=== PATIENT | male | born 1945 | race American Indian/Alaskan Native ===

== ENCOUNTER 2019-02-03 11:53 | Inpatient (IN) | payer MEDICARE ==
[2019-02-03] MEDS ORDERED: CARDIZEM ONE (12:26)
[2019-02-03] MEDS ORDERED: CARDIZEM IV ONE (12:27)
--- NOTE | 2019-02-03 12:30 | Emergency Department Report ---
ED General Adult HPI - General Chief complaint: Chest Pain Stated complaint: CHEST PRESSURE Time Seen by Provider: 02/03/19 12:15 Source: patient, EMS Mode of arrival: Stretcher Limitations: No Limitations - History of Present Illness Initial comments: Patient is a 73-year-old male that presents emergency room with complaints of chest pressure and shortness of breath, And palpitations. Patient states he was at his primary care's office they found him to have a high heart rate patient sent here for further evaluation treatment per EMS. Patient states his chest pressure has resolved but is still having palpitations shortness of breath. Patient states shortness of breath better with rest worse with exertion. -: Sudden Quality: aching Consistency: constant, now resolved Improves with: rest Worsens with: movement Associated Symptoms: chest pain, malaise, shortness of breath. denies: cough, diaphoresis, fever/chills, headaches, loss of appetite, nausea/vomiting, rash, seizure, syncope, weakness Treatments Prior to Arrival: none - Related Data Home Medications Medication Instructions Recorded Confirmed Last Taken Apixaban [Eliquis] 5 mg PO BID 02/03/19 02/03/19 02/03/19 Atorvastatin [Lipitor Tab] 40 mg PO QPM 02/03/19 02/03/19 02/02/19 Cyanocobalamin (Vitamin B-12) 500 mcg PO QDAY 02/03/19 02/03/19 02/02/19 [Vitamin B-12] Losartan/Hydrochlorothiazide 1 each PO DAILY 02/03/19 02/03/19 02/02/19 [Losartan-Hctz 50-12.5 mg Tab] Sotalol [Betapace] 80 mg PO BID 02/03/19 02/03/19 02/03/19 Tamsulosin [Flomax] 0.4 mg PO QPM 02/03/19 02/03/19 02/02/19 Allergies Allergy/AdvReac Type Severity Reaction Status Date / Time No Known Allergies Allergy Verified 02/03/19 12:09 ED Review of Systems ROS: Stated complaint: CHEST PRESSURE Other details as noted in HPI Constitutional: denies: chills, fever Eyes: denies: eye pain, eye discharge, vision change ENT: denies: ear pain, throat pain Respiratory: shortness of breath, SOB with exertion, SOB at rest. denies: cough, wheezing Cardiovascular: chest pain, palpitations Endocrine: no symptoms reported Gastrointestinal: denies: abdominal pain, nausea, diarrhea Genitourinary: denies: urgency, dysuria Musculoskeletal: denies: back pain, joint swelling, arthralgia Skin: denies: rash, lesions Neurological: denies: headache, weakness, paresthesias Psychiatric: denies: anxiety, depression Hematological/Lymphatic: denies: easy bleeding, easy bruising ED Past Medical Hx - Past Medical History Previous Medical History?: Yes Hx Hypertension: Yes Hx CVA: Yes Hx Heart Attack/AMI: No Hx Congestive Heart Failure: No Hx Liver Disease: No Hx Renal Disease: No Additional medical history: afib, htn, high cholestrol, stroke in november 2018 - Surgical History Past Surgical History?: No - Family History Family history: no significant - Social History Smoking Status: Never Smoker Substance Use Type: None - Medications Home Medications: Home Medications Medication Instructions Recorded Confirmed Last Taken Type Apixaban [Eliquis] 5 mg PO BID 02/03/19 02/03/19 02/03/19 History Atorvastatin [Lipitor Tab] 40 mg PO QPM 02/03/19 02/03/19 02/02/19 History Cyanocobalamin (Vitamin B-12) 500 mcg PO QDAY 02/03/19 02/03/19 02/02/19 History [Vitamin B-12] Losartan/Hydrochlorothiazide 1 each PO DAILY 02/03/19 02/03/19 02/02/19 History [Losartan-Hctz 50-12.5 mg Tab] Sotalol [Betapace] 80 mg PO BID 02/03/19 02/03/19 02/03/19 History Tamsulosin [Flomax] 0.4 mg PO QPM 02/03/19 02/03/19 02/02/19 History ED Physical Exam - General Limitations: No Limitations General appearance: alert, in no apparent distress - Head Head exam: Present: atraumatic, normocephalic - Eye Eye exam: Present: normal appearance - ENT ENT exam: Present: mucous membranes moist - Neck Neck exam: Present: normal inspection - Respiratory Respiratory exam: Present: normal lung sounds bilaterally. Absent: respiratory distress, wheezes, rales - Cardiovascular Cardiovascular Exam: Present: regular rate, normal rhythm, tachycardia. Absent: systolic murmur, diastolic murmur, rubs, gallop - GI/Abdominal GI/Abdominal exam: Present: soft, normal bowel sounds - Rectal Rectal exam: Present: deferred - Extremities Exam Extremities exam: Present: normal inspection - Back Exam Back exam: Present: normal inspection - Neurological Exam Neurological exam: Present: alert, oriented X3 - Psychiatric Psychiatric exam: Present: normal affect, normal mood - Skin Skin exam: Present: warm, dry, intact, normal color. Absent: rash ED Course Vital Signs 02/03/19 02/03/19 02/03/19 12:15 12:27 12:31 Pulse Rate 118 H 137 H 69 Respiratory 22 19 Rate Blood Pressure 124/85 124/85 O2 Sat by Pulse 100 Oximetry 02/03/19 02/03/19 02/03/19 12:33 12:35 12:37 Pulse Rate 70 69 69 Respiratory 20 17 12 Rate Blood Pressure 101/62 101/62 98/65 O2 Sat by Pulse 99 100 96 Oximetry 02/03/19 02/03/19 02/03/19 12:39 12:41 12:43 Pulse Rate 69 74 74 Respiratory 22 18 18 Rate Blood Pressure 98/65 96/59 96/59 O2 Sat by Pulse 98 100 100 Oximetry 02/03/19 02/03/19 02/03/19 12:45 12:47 12:49 Pulse Rate 69 71 72 Respiratory 22 22 21 Rate Blood Pressure 96/59 106/67 106/67 O2 Sat by Pulse 100 98 92 Oximetry 02/03/19 02/03/19 02/03/19 12:51 12:53 12:55 Pulse Rate 79 90 76 Respiratory 15 16 21 Rate Blood Pressure 109/67 109/67 109/67 O2 Sat by Pulse 86 81 L 86 Oximetry 02/03/19 02/03/19 02/03/19 12:56 12:57 12:59 Pulse Rate 80 72 75 Respiratory 21 15 15 Rate Blood Pressure 114/73 114/73 114/73 O2 Sat by Pulse 93 81 L 78 L Oximetry 02/03/19 02/03/19 02/03/19 13:00 13:01 13:03 Pulse Rate 76 80 76 Respiratory 13 21 15 Rate Blood Pressure 120/77 120/77 120/77 O2 Sat by Pulse 94 93 89 Oximetry 02/03/19 02/03/19 02/03/19 13:05 13:06 13:07 Pulse Rate 81 72 81 Respiratory 22 21 18 Rate Blood Pressure 120/77 128/78 128/78 O2 Sat by Pulse 93 85 98 Oximetry 02/03/19 02/03/19 02/03/19 13:09 13:11 13:13 Pulse Rate 72 80 91 H Respiratory 21 12 20 Rate Blood Pressure 128/78 121/67 121/67 O2 Sat by Pulse 100 100 100 Oximetry 02/03/19 02/03/19 02/03/19 13:15 13:16 13:17 Pulse Rate 102 H 90 91 H Respiratory 21 24 24 Rate Blood Pressure 121/67 118/62 118/62 O2 Sat by Pulse 88 99 Oximetry 02/03/19 02/03/19 02/03/19 13:18 13:19 13:21 Pulse Rate 85 85 103 H Respiratory 20 17 13 Rate Blood Pressure 118/62 114/64 O2 Sat by Pulse 84 96 99 Oximetry 02/03/19 02/03/19 02/03/19 13:23 13:25 13:27 Pulse Rate 97 H 81 85 Respiratory 15 18 22 Rate Blood Pressure 114/64 114/64 114/69 O2 Sat by Pulse 100 100 100 Oximetry 02/03/19 02/03/19 02/03/19 13:29 13:31 13:32 Pulse Rate 86 90 91 H Respiratory 21 19 22 Rate Blood Pressure 114/69 114/69 88/62 O2 Sat by Pulse 100 94 99 Oximetry 02/03/19 02/03/19 02/03/19 13:33 13:35 13:37 Pulse Rate 86 81 90 Respiratory 23 17 21 Rate Blood Pressure 88/62 88/62 112/64 O2 Sat by Pulse 100 100 100 Oximetry 02/03/19 02/03/19 02/03/19 13:39 13:40 13:41 Pulse Rate 85 86 85 Respiratory 21 21 23 Rate Blood Pressure 112/64 108/67 108/67 O2 Sat by Pulse 99 93 98 Oximetry 02/03/19 02/03/19 02/03/19 13:43 13:45 13:46 Pulse Rate 77 75 96 H Respiratory 18 21 16 Rate Blood Pressure 108/67 118/62 116/77 O2 Sat by Pulse 99 96 99 Oximetry 02/03/19 02/03/19 02/03/19 13:47 13:49 13:51 Pulse Rate 111 H 109 H 96 H Respiratory 17 26 H 22 Rate Blood Pressure 116/77 116/77 111/68 O2 Sat by Pulse 97 100 98 Oximetry 02/03/19 02/03/19 02/03/19 13:53 13:55 13:56 Pulse Rate 103 H 102 H 118 H Respiratory 19 25 H 25 H Rate Blood Pressure 111/68 111/68 112/74 O2 Sat by Pulse 100 100 100 Oximetry 02/03/19 02/03/19 02/03/19 13:57 13:59 14:01 Pulse Rate 103 H 109 H 129 H Respiratory 20 12 22 Rate Blood Pressure 112/74 112/74 112/74 O2 Sat by Pulse 100 97 98 Oximetry 02/03/19 02/03/19 02/03/19 14:03 14:05 14:07 Pulse Rate 132 H 133 H 119 H Respiratory 20 15 22 Rate Blood Pressure 119/96 119/96 135/89 O2 Sat by Pulse 99 100 Oximetry 02/03/19 02/03/19 02/03/19 14:09 14:11 14:13 Pulse Rate 102 H 110 H 102 H Respiratory 20 22 21 Rate Blood Pressure 135/89 115/71 115/71 O2 Sat by Pulse 100 100 100 Oximetry 02/03/19 02/03/19 02/03/19 14:15 14:17 14:18 Pulse Rate 111 H 110 H 111 H Respiratory 15 22 23 Rate Blood Pressure 115/71 115/71 108/75 O2 Sat by Pulse 100 100 97 Oximetry 02/03/19 02/03/19 02/03/19 14:19 14:21 14:23 Pulse Rate 97 H 133 H 131 H Respiratory 25 H 31 H 24 Rate Blood Pressure 108/75 131/87 131/87 O2 Sat by Pulse 99 100 100 Oximetry 02/03/19 02/03/19 02/03/19 14:25 14:26 14:27 Pulse Rate 104 H 110 H 111 H Respiratory 25 H 21 25 H Rate Blood Pressure 131/87 128/79 128/79 O2 Sat by Pulse 100 100 100 Oximetry 02/03/19 02/03/19 02/03/19 14:29 14:31 14:33 Pulse Rate 132 H 132 H 133 H Respiratory 19 22 18 Rate Blood Pressure 128/79 128/79 128/79 O2 Sat by Pulse 100 100 100 Oximetry 02/03/19 02/03/19 02/03/19 14:35 14:36 14:37 Pulse Rate 132 H 133 H 132 H Respiratory 20 22 20 Rate Blood Pressure 128/79 131/86 131/86 O2 Sat by Pulse 99 100 99 Oximetry - Reevaluation(s) Reevaluation #1: Patient given Cardizem push and heart rate improved. Repeat EKG will be done. 02/03/19 12:29 Patient's heart rate improved. Patient's blood pressure is low. Patient will be given normal saline bolus. 02/03/19 12:37 After 1 L of fluid the patient blood pressure is much better. We will continue to hold the Cardizem drip and use it when necessary. Discussed all results with patient. Patient will be admitted to the hospitalist service. Patient agrees to plan of care. 02/03/19 13:33 - Consultations Consultation #1: Hospitalist consulted for admission. Hospitalist to admit patient. Hospitalist to assume care patient. 02/03/19 13:41 ED Medical Decision Making - Lab Data Result diagrams: 02/03/19 12:29 02/03/19 12:29 - EKG Data -: EKG Interpreted by Me EKG shows normal: axis, intervals, QRS complexes, ST-T waves Rate: tachycardia - EKG Data Interpretation: LVH, other (atrial flutter with RVR) - Radiology Data Radiology results: image reviewed interpreted by me: No acute findings on chest x-ray - Medical Decision Making Patient is a 73-year-old male that presents emergency room with complaints of chest pain/pressure, shortness of breath and palpitations. Patient found to be in a flutter RVR. Patient given Cardizem and rate immediately decreased. Deidre ent has a Cardizem drip ordered but due to hypotension was held. Patient given fluids and his blood pressure improved. Patient's labs unremarkable except for renal insufficiency. Patient's chest x-ray negative. Patient admitted to the hospital service - Differential Diagnosis cp. sob. palpitations. Tachycardic. ACS. Atrial flutter Critical Care Time: Yes Critical care attestation.: If time is entered above; I have spent that time in minutes in the direct care of this critically ill patient, excluding procedure time. Critical Care Time: 45 minutes ED Disposition Clinical Impression: SOB (shortness of breath), Palpitations, Atrial flutter with rapid ventricular response, Tachycardia, Renal insufficiency Hypotension Qualifiers: Hypotension type: unspecified hypotension type Qualified Code(s): I95.9 - Hypotension, unspecified Chest pain Qualifiers: Chest pain type: unspecified Qualified Code(s): R07.9 - Chest pain, unspecified Disposition: 09 OP ADMIT IP TO THIS HOSP Is pt being admited?: Yes Does the pt Need Aspirin: No Condition: Critical Time of Disposition: 13:36
--- NOTE | 2019-02-03 12:35 | XRay Report ---
AP CHEST: HISTORY: chest pain AP view of the chest demonstrates a normal mediastinal and cardiac contour with clear lungs and normal bony and soft tissue structures. IMPRESSION: No acute cardiopulmonary process is identified.
[2019-02-03] MEDS ORDERED: NACL 0.9% 1000 ML 1,000 ML IV ONE (12:36)
[2019-02-03] MEDS ORDERED: NACL 0.9% 1000 ML 1,000 ML ONE ×2 (12:39→15:56)
[2019-02-03 12:42] LABS: Basophils # (Auto) 0.1 K/mm3 (0.0-0.1); Basophils % (Auto) 1.1 % (0.0-1.8); Eosinophils % (Auto) 0.7 % (0.0-4.3); Hematocrit 38.9 % (35.5-45.6); Lymphocytes # (Auto) 1.7 K/mm3 (1.2-5.4); Lymphocytes % (Auto) 34.2 % (13.4-35.0); Mean Corpuscular HGB Conc 34 % (32-34); Mean Corpuscular Volume 85 fl (84-94); Monocytes # (Auto) 0.7 K/mm3 (0.0-0.8); Monocytes % (Auto) 14.1 % (0.0-7.3); Platelet Count 382 K/mm3 (140-440); Red Blood Count 4.57 M/mm3 (3.65-5.03); Red Cell Distribution Width 16.6 % (13.2-15.2)
[2019-02-03 12:59] LABS: BUN/Creatinine Ratio 8; Blood Urea Nitrogen 12 mg/dL (9-20); Calcium 9.1 mg/dL (8.4-10.2); Hemolysis Index 7
[2019-02-03] MEDS ORDERED: CARDIZEM/D5W 100MG/100ML 100 MG/100 ML BAG IV SCH (13:00)
--- NOTE | 2019-02-03 13:41 | History and Physical Report ---
History of Present Illness Chief complaint: My heart was beating fast History of present illness: 73 YO Male with HTN, CVA, Atrial Fib S/P Cardiac Ablation on therapeutic anticoagulation with ANITRA Rosario presents to ED for evaluation. Pt states that he has experienced chest palpitations, nonproductive cough, and shortness of breath, decreased exercise tolerance, dypsnea on exertion, and dypsnea at rest. Pt was seen by PCP today and was found to have heart rate in the 150's. EMS notified and upon arrival the patient was found to be in distress and transported to [facility]. Pt seen and evaluated in ED and found to have Atrial Fib with RVR as well as symptoms consistent with CHF Decompensation and ARF. Pt denies fever, chills, CP, NVD, Prolonged travel/immobility, individual/family history of DVT/PE, Bleeding or Blood Clotting Disorders, unintentional weight loss,night sweats, or skin rash. Pt admitted to telemetry. Pt treated with cardizem bolus with improvement in heart rate. Pt admitted to telemetry and initiated on IVF resuscitation therapy. Cardiology consulted in ED. Nephrology consulted in ED. Past History Past Medical History: atrial fib, hypertension, hyperlipidemia, stroke Past Surgical History: Other (cardiac ablation) Social history: , lives with family. denies: smoking, alcohol abuse, prescription drug abuse Family history: hypertension Medications and Allergies Allergies Allergy/AdvReac Type Severity Reaction Status Date / Time No Known Allergies Allergy Verified 02/03/19 12:09 Active Meds: Active Medications Diltiazem HCl (Cardizem/D5w 100mg/100ml) 100 mg in 100 mls @ 5 mls/hr IV TITR EDWAR; Protocol Review of Systems Constitutional: no weight loss, no weight gain, no fever, no chills Ears, nose, mouth and throat: no ear pain, no ear discharge, no tinnitis, no decreased hearing, no nose pain Cardiovascular: palpitations, rapid/irregular heart beat, shortness of breath, dyspnea on exertion, decreased exercise tolerance, no chest pain, no syncope Respiratory: cough, cough with sputum, shortness of breath, dyspnea on exertion, no excessive sputum, no hemoptysis Gastrointestinal: no nausea, no vomiting, no diarrhea Genitourinary Male: no hematuria, no flank pain, no discharge, no urinary frequency, no urinary hesitancy Rectal: no pain, no incontinence, no bleeding Musculoskeletal: no neck stiffness, no neck pain, no shooting arm pain, no arm numbness/tingling, no low back pain Integumentary: no rash, no pruritis, no sores, no wounds, no jaundice Neurological: no paralysis, no weakness, no numbness, no tingling Psychiatric: no anxiety, no memory loss, no change in sleep habits, no sleep disturbances, no insomnia, no hypersomnia, no change in appetite Endocrine: no cold intolerance, no heat intolerance, no polyphagia, no excessive thirst, no polyuria, no nocturia Hematologic/Lymphatic: no easy bruising, no easy bleeding Allergic/Immunologic: no urticaria, no allergic rhinitis, no wheezing Exam - Constitutional Vitals: Temp Pulse Resp BP Pulse Ox 102 H 21 121/67 88 02/03/19 13:15 02/03/19 13:15 02/03/19 13:15 02/03/19 13:15 General appearance: Present: mild distress - EENT Eyes: Present: PERRL ENT: hearing intact, clear oral mucosa - Neck Neck: Present: supple, normal ROM - Respiratory Respiratory effort: normal Respiratory: bilateral: CTA - Cardiovascular Rhythm: irregularly irregular Heart Sounds: Present: S1 & S2. Absent: rub, click - Extremities Extremities: pulses symmetrical, No edema Peripheral Pulses: within normal limits - Abdominal General gastrointestinal: Present: soft, non-tender, non-distended, normal bowel sounds Male genitourinary: Present: normal - Integumentary Integumentary: Present: clear, warm, dry - Musculoskeletal Musculoskeletal: gait normal, strength equal bilaterally - Psychiatric Psychiatric: appropriate mood/affect, intact judgment & insight - Neurologic Neurologic: CNII-XII intact, moves all extremities Results - Labs CBC & Chem 7: 02/03/19 12:29 02/03/19 12:29 Labs: Abnormal lab results 02/03/19 02/03/19 Range/Units 12:29 12:29 RDW 16.6 H (13.2-15.2) % Baxter % (Auto) 14.1 H (0.0-7.3) % Sodium 133 L (137-145) mmol/L Creatinine 1.6 H (0.8-1.5) mg/dL Glucose 107 H (75-100) mg/dL Assessment and Plan - Patient Problems (1) Atrial flutter with rapid ventricular response Current Visit: Yes Status: Acute Plan to address problem: Admit to telemetry, Cardizem bolus, and scheduled dosing, continue therapeutic anticoagualtion, cardiology consulted, thyroid panel, magnesium level (2) ARF (acute renal failure) with tubular necrosis Current Visit: Yes Status: Acute Plan to address problem: Nephrology consulted, urine electrolytes, monitor uop q shift, IVF resuscitation therapy (3) Hyponatremia syndrome Current Visit: Yes Status: Acute Plan to address problem: IVF resuscitation, repeat bmp to monitor serum sodium level (4) HTN (hypertension) Current Visit: Yes Status: Acute Qualifiers: Hypertension type: essential hypertension Qualified Code(s): I10 - Essential (primary) hypertension Plan to address problem: monitor bp q shift, continue medical management. (5) HLD (hyperlipidemia) Current Visit: Yes Status: Acute Qualifiers: Hyperlipidemia type: mixed hyperlipidemia Qualified Code(s): E78.2 - Mixed hyperlipidemia Plan to address problem: statin therapy, low cholesterol diet, (6) CHF (congestive heart failure) Current Visit: Yes Status: Suspected Qualifiers: Heart failure type: diastolic Heart failure chronicity: acute Qualified Code(s): I50.31 - Acute diastolic (congestive) heart failure Plan to address problem: Admit to telemetry, echo, bnp, thyroid panel, strict I/O, daily weight, blood pressure control, cardiology consulted in ED, supplemental oxygen, pulse oximetry, chest x ray, (7) DVT prophylaxis Current Visit: Yes Status: Acute Plan to address problem: SCD to BLE while in bed, continue therapeutic anticoagulation.
[2019-02-03] MEDS ORDERED: SODIUM CHLORIDE FLUSH SYRINGE 10 ML IV PRN (14:06)
[2019-02-03] MEDS ORDERED: PROVENTIL IH PRN (14:06)
[2019-02-03] MEDS ORDERED: PERCOCET 5/325 PO PRN (14:06)
[2019-02-03] MEDS ORDERED: ZOFRAN IV PRN (14:06)
[2019-02-03] MEDS ORDERED: TYLENOL PO PRN (14:06)
[2019-02-03] MEDS ORDERED: HYDROMET PO ONE (14:07)
[2019-02-03] MEDS: CARDIZEM PO SCH ×2 (14:35→18:38)
[2019-02-03] MEDS ORDERED: NACL 0.45% 1000 ML 1,000 ML IV SCH (15:00)
[2019-02-03] MEDS ORDERED: NACL 0.9% 500 ML 500 ML IV ONE (15:16)
[2019-02-03] MEDS: BETAPACE PO SCH ×2 (15:28→22:40)
[2019-02-03 15:52] LABS: Free T4 (Free Thyroxine) 1.05 ng/dL (0.76-1.46)
[2019-02-03 16:21] LABS: Creatinine,Urine 154.9 mg/dL (0.1-20.0)
[2019-02-03] MEDS: FLOMAX PO SCH (17:12)
[2019-02-03] MEDS: ELIQUIS PO SCH (22:41)
[2019-02-03] MEDS: SODIUM CHLORIDE FLUSH SYRINGE 10 ML IV SCH (22:41)
[2019-02-04] MEDS: CARDIZEM PO SCH ×4 (00:01→16:59)
[2019-02-04 06:18] LABS: Alanine Aminotransferase 12 units/L (7-56); Albumin 3.4 g/dL (3.9-5); BUN/Creatinine Ratio 11; Blood Urea Nitrogen 13 mg/dL (9-20); Calcium 8.4 mg/dL (8.4-10.2); Hemolysis Index 5
[2019-02-04] MEDS ORDERED: NON-FORMULARY (Losartan/Hydrochlorothiazide [Losartan-Hctz 50-12.5 Mg Tab] 1 EACH) PO SCH (10:00)
[2019-02-04] MEDS ORDERED: HCTZ PO SCH (10:00)
[2019-02-04] MEDS ORDERED: NON-FORMULARY (Cyanocobalamin (Vitamin B-12) [Vitamin B-12] 500 MCG) PO SCH (10:00)
--- NOTE | 2019-02-04 10:44 | Consultation ---
History of Present Illness Consult date: 02/04/19 Consult reason: arrhythmia History of present illness: This is a 73 year old male with a history of atrial fibrillation/flutter managed with sotalol and eliquis. 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 On yesterday, patient went to his pcp office with complaints of shortness of breath, coughs and congestion not relieved by [id number] sinus remedies. Patient was foun d with rapid atrial flutter, sent to the emergency department for management. This was treated with intravenous diltiazem. TSH is normal and a chest x-ray reports no acute process. Today, he remains atrial flutter, rate is better controlled. A cardiac consultation has been requested for management. Past History Past Medical History: atrial fib, hypertension, hyperlipidemia Social history: , lives with family. denies: smoking, alcohol abuse, prescription drug abuse Family history: hypertension Medications and Allergies Allergies Allergy/AdvReac Type Severity Reaction Status Date / Time No Known Allergies Allergy Verified 02/03/19 12:09 Home Medications Medication Instructions Recorded Confirmed Last Taken Type Apixaban [Eliquis] 5 mg PO BID 02/03/19 02/03/19 02/03/19 History Atorvastatin [Lipitor Tab] 40 mg PO QPM 02/03/19 02/03/19 02/02/19 History Cyanocobalamin (Vitamin B-12) 500 mcg PO QDAY 02/03/19 02/03/19 02/02/19 History [Vitamin B-12] Losartan/Hydrochlorothiazide 1 each PO DAILY 02/03/19 02/03/19 02/02/19 History [Losartan-Hctz 50-12.5 mg Tab] Sotalol [Betapace] 80 mg PO BID 02/03/19 02/03/19 02/03/19 History Tamsulosin [Flomax] 0.4 mg PO QPM 02/03/19 02/03/19 02/02/19 History Active Meds: Active Medications Acetaminophen (Tylenol) 650 mg PO Q4H PRN PRN Reason: Pain MILD(1-3)/Fever >100.5/MG Albuterol (Proventil) 2.5 mg IH Q4HRT PRN PRN Reason: Shortness Of Breath Apixaban (Eliquis) 5 mg PO BID [facility]; Protocol Last Admin: 02/03/19 22:41 Dose: 5 mg Documented by: Atorvastatin Calcium (Lipitor) 40 mg PO QPM [facility] Last Admin: 02/03/19 17:12 Dose: 40 mg Documented by: Cyanocobalamin (Vitamin B-12) 500 mcg PO QDAY [facility] Diltiazem HCl (Cardizem) 30 mg PO Q6HR [facility] Last Admin: 02/04/19 05:38 Dose: 30 mg Documented by: Hydrochlorothiazide (Hctz) 12.5 mg PO QDAY [facility] Sodium Chloride (Nacl 0.45% 1000 Ml) 1,000 mls @ 42 mls/hr IV DIRECT [facility] Losartan Potassium (Cozaar) 50 mg PO QDAY [facility] Ondansetron HCl (Zofran) 4 mg IV Q8H PRN PRN Reason: Nausea And Vomiting Oxycodone/Acetaminophen (Percocet 5/325) 1 tab PO Q6H PRN PRN Reason: Pain, Moderate (4-6) Sodium Chloride (Sodium Chloride Flush Syringe 10 Ml) 10 ml IV BID [facility] Last Admin: 02/03/19 22:41 Dose: 10 ml Documented by: Sodium Chloride (Sodium Chloride Flush Syringe 10 Ml) 10 ml IV PRN PRN PRN Reason: LINE FLUSH Sotalol HCl (Betapace) 80 mg PO Q12HR [facility] Last Admin: 02/03/19 22:40 Dose: 80 mg Documented by: Tamsulosin HCl (Flomax) 0.4 mg PO QPM [facility] Last Admin: 02/03/19 17:12 Dose: 0.4 mg Documented by: Physical Examination Vital Signs Pulse Resp 118 H 22 02/03/19 12:15 02/03/19 12:15 General appearance: no acute distress HEENT: Positive: PERRL Cardiac: Positive: irregularly irregular Lungs: Positive: Decreased Breath Sounds Neuro: Positive: Grossly Intact Extremities: Absent: edema Results 02/03/19 12:29 02/04/19 04:35 Cardiac Enzymes 02/04/19 Range/Units 04:35 AST 17 (5-40) units/L CBC 02/03/19 Range/Units 12:29 WBC 4.9 (4.5-11.0) K/mm3 RBC 4.57 (3.65-5.03) M/mm3 Hgb 13.0 (11.8-15.2) gm/dl Hct 38.9 (35.5-45.6) % Plt Count 382 (140-440) K/mm3 Lymph # 1.7 (1.2-5.4) K/mm3 Webb # 0.7 (0.0-0.8) K/mm3 Eos # 0.0 (0.0-0.4) K/mm3 Baso # 0.1 (0.0-0.1) K/mm3 Comprehensive Metabolic Panel 02/03/19 02/04/19 Range/Units 12:29 04:35 Sodium 133 L 136 L (137-145) mmol/L Potassium 4.5 4.4 (3.6-5.0) mmol/L Chloride 98.0 103.4 (98-107) mmol/L Carbon Dioxide 24 22 (22-30) mmol/L BUN 12 13 (9-20) mg/dL Creatinine 1.6 H 1.2 (0.8-1.5) mg/dL Glucose 107 H 98 (75-100) mg/dL Calcium 9.1 8.4 (8.4-10.2) mg/dL AST 17 (5-40) units/L ALT 12 (7-56) units/L Alkaline Phosphatase 77 (35-129) units/L Total Protein 6.3 (6.3-8.2) g/dL Albumin 3.4 L (3.9-5) g/dL Assessment and Plan Atrial flutter on eliquis and sotalol as an outpatient. Diltiazem has been added Hypertension Hyperlipidemia Echocardiogram for LVEF assessment. Obtain prior cardiac records for review.
[2019-02-04] MEDS: VITAMIN B-12 PO SCH (11:03)
[2019-02-04] MEDS: BETAPACE PO SCH ×2 (11:06→22:21)
[2019-02-04] MEDS: ELIQUIS PO SCH ×2 (11:06→22:21)
[2019-02-04] MEDS: COZAAR PO SCH (11:06)
[2019-02-04] MEDS: SODIUM CHLORIDE FLUSH SYRINGE 10 ML IV SCH ×2 (11:07→22:21)
--- NOTE | 2019-02-04 11:28 | Progress Note ---
Assessment and Plan Assessment and plan: Atrial flutter. Continue eliquis and sotalol. Cardiology added diltiazem. Follow-up echocardiogram. Hypertension. Continue antihypertensive medications-- losartan/hydrochlorothiazide. Hyperlipidemia. Continue statin. History Interval history: This is a 73 year old male with a history of atrial fibrillation/flutter managed with sotalol and eliquis. 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 Patient presented to PCPs office and noted to have rapid atrial flutter. Patient was admitted with this diagnosis and started on IV diltiazem. TSH is normal and a chest x-ray reports no acute process. . Hospitalist Physical - Constitutional Vitals: Temp Pulse Resp BP Pulse Ox 98.3 F 58 L 18 105/65 95 02/04/19 08:51 02/04/19 08:51 02/04/19 08:51 02/04/19 11:06 02/04/19 08:51 General appearance: Present: no acute distress - EENT Eyes: Present: PERRL, EOM intact ENT: hearing intact, clear oral mucosa, dentition normal - Neck Neck: Present: supple, normal ROM - Respiratory Respiratory effort: normal Respiratory: bilateral: CTA - Cardiovascular Rhythm: regular Heart Sounds: Present: S1 & S2. Absent: gallop, rub - Extremities Extremities: no ischemia, No edema, Full ROM - Abdominal General gastrointestinal: soft, non-tender, non-distended, normal bowel sounds - Integumentary Integumentary: Present: clear, warm, dry - Neurologic Neurologic: CNII-XII intact, moves all extremities Results - Labs CBC & Chem 7: 02/03/19 12:29 02/04/19 04:35 Labs: Laboratory Last Values WBC 4.9 K/mm3 (4.5-11.0) 02/03/19 12:29 RBC 4.57 M/mm3 (3.65-5.03) 02/03/19 12:29 Hgb 13.0 gm/dl (11.8-15.2) 02/03/19 12:29 Hct 38.9 % (35.5-45.6) 02/03/19 12:29 MCV 85 fl (84-94) 02/03/19 12:29 MCH 29 pg (28-32) 02/03/19 12:29 MCHC 34 % (32-34) 02/03/19 12:29 RDW 16.6 % (13.2-15.2) H 02/03/19 12:29 Plt Count 382 K/mm3 (140-440) 02/03/19 12:29 Lymph % (Auto) 34.2 % (13.4-35.0) 02/03/19 12:29 [place] % (Auto) 14.1 % (0.0-7.3) H 02/03/19 12:29 Eos % (Auto) 0.7 % (0.0-4.3) 02/03/19 12:29 Baso % (Auto) 1.1 % (0.0-1.8) 02/03/19 12: Lymph # 1.7 K/mm3 (1.2-5.4) 02/03/19 12: [place] # 0.7 K/mm3 (0.0-0.8) 02/03/19 12:29 Eos # 0.0 K/mm3 (0.0-0.4) 02/03/19 12:29 Baso # 0.1 K/mm3 (0.0-0.1) 02/03/19 12:29 Seg Neutrophils % 49.9 % (40.0-70.0) 02/03/19 12:29 Seg Neutrophils # 2.5 K/mm3 (1.8-7.7) 02/03/19 12:29 Sodium 136 mmol/L (137-145) L 02/04/19 04:35 Potassium 4.4 mmol/L (3.6-5.0) 02/04/19 04:35 Chloride 103.4 mmol/L (98-107) 02/04/19 04:35 Carbon Dioxide 22 mmol/L (22-30) 02/04/19 04:35 15 mmol/L 02/04/19 04:35 BUN 13 mg/dL (9-20) 02/04/19 04:35 1.2 mg/dL (0.8-1.5) 02/04/19 04:35 Estimated GFR > 60 ml/min 02/04/19 04:35 11 % 02/04/19 04:35 Glucose 98 mg/dL (75-100) 02/04/19 04:35 Calcium 8.4 mg/dL (8.4-10.2) 02/04/19 04:35 Phosphorus 3.00 mg/dL (2.5-4.5) 02/04/19 04:35 Magnesium 1.70 mg/dL (1.7-2.3) 02/04/19 04:35 0.40 mg/dL (0.1-1.2) 02/04/19 04:35 AST 17 units/L (5-40) 02/04/19 04:35 ALT 12 units/L (7-56) 02/04/19 04:35 77 units/L (35-129) 02/04/19 04:35 < 0.010 ng/mL (0.00-0.029) 02/03/19 12:29 NT-Pro-B Natriuret Pep 2231 pg/mL (0-900) H 02/03/19 12:29 6.3 g/dL (6.3-8.2) 02/04/19 04:35 3.4 g/dL (3.9-5) L 02/04/19 04:35 1.2 % 02/04/19 04:35 TSH 1.350 mlU/mL (0.270-4.200) 02/03/19 15:04 Free T4 1.05 ng/dL (0.76-1.46) 02/03/19 15:04 154.9 mg/dL (0.1-20.0) H 02/03/19 16:10 42 mmol/L 02/03/19 16:10 Active Medications - Current Medications Current Medications: Generic Name Dose Route Start Last Admin Trade Name Freq PRN Reason Stop Dose Admin Acetaminophen 650 mg 02/03/19 14:06 Tylenol PO Q4H PRN Pain MILD(1-3)/Fever >100.5/MG Albuterol 2.5 mg 02/03/19 14:06 Proventil IH Q4HRT PRN Shortness Of Breath Apixaban 5 mg 02/03/19 22:00 02/04/19 11:06 Eliquis PO 5 mg BID EDWAR Administration Protocol Atorvastatin Calcium 40 mg 02/03/19 18:00 02/03/19 17:12 Lipitor PO 40 mg QPM EDWAR Administration Cyanocobalamin 500 mcg 02/04/19 10:00 02/04/19 11:03 Vitamin B-12 PO 500 mcg QDAY EDWAR Administration Diltiazem HCl 30 mg 02/03/19 14:05 02/04/19 05:38 Cardizem PO 30 mg Q6HR EDWAR Administration Hydrochlorothiazide 12.5 mg 02/04/19 10:00 02/04/19 11:04 Hctz PO 12.5 mg QDAY EDWAR Administration Sodium Chloride 1,000 mls @ 42 mls/hr 02/03/19 15:00 Nacl 0.45% 1000 Ml IV DIRECT EDWAR Losartan Potassium 50 mg 02/04/19 10:00 02/04/19 11:06 Cozaar PO 50 mg QDAY EDWAR Administration Ondansetron HCl 4 mg 02/03/19 14:06 Zofran IV Q8H PRN Nausea And Vomiting Oxycodone/Acetaminophen 1 tab 02/03/19 14:06 Percocet 5/325 PO Q6H PRN Pain, Moderate (4-6) Sodium Chloride 10 ml 02/03/19 22:00 02/04/19 11:07 Sodium Chloride Flush Syringe 10 Ml IV 10 ml BID EDWAR Administration Sodium Chloride 10 ml 02/03/19 14:06 Sodium Chloride Flush Syringe 10 Ml IV PRN PRN LINE FLUSH Sotalol HCl 80 mg 02/03/19 15:14 02/04/19 11:06 Betapace PO 80 mg Q12HR EDWAR Administration Tamsulosin HCl 0.4 mg 02/03/19 18:00 02/03/19 17:12 Flomax PO 0.4 mg QPM EDWAR Administration
--- NOTE | 2019-02-04 14:39 | Consultation ---
History of Present Illness - Reason for Consult Consult date: 02/04/19 acute renal failure - History of Present Illness This patient is a 73 YO male with history significant for HTN, HLD and Atrial fibrillation/flutter who presented from his pcp's office with rapid atrial flutter. Patient presented to his pcp with c/o shortness of breath, cough and congestion for about 4 weeks. The symptoms are worse for the past 2 weeks and not relieved by [id number] meds. Patient is a vague historian. He also reports PND. He denies N, V, D, dizziness, palpitation, syncope, cp, hemoptysis, leg swelling, fever, chills, dysuria or hematuria. In the emergency department he was treated with intravenous diltiazem. His creatinine was found to be at 1.6 on admission. A Nephrology consultation has been requested for management. Past History Past Medical History: atrial fib, hypertension, hyperlipidemia Past Surgical History: Other (cardiac ablation) Social history: , lives with family. denies: smoking, alcohol abuse, prescription drug abuse Family history: hypertension Medications and Allergies Allergies Allergy/AdvReac Type Severity Reaction Status Date / Time No Known Allergies Allergy Verified 02/03/19 12:09 Home Medications Medication Instructions Recorded Confirmed Last Taken Type Apixaban [Eliquis] 5 mg PO BID 02/03/19 02/03/19 02/03/19 History Atorvastatin [Lipitor Tab] 40 mg PO QPM 02/03/19 02/03/19 02/02/19 History Cyanocobalamin (Vitamin B-12) 500 mcg PO QDAY 02/03/19 02/03/19 02/02/19 History [Vitamin B-12] Losartan/Hydrochlorothiazide 1 each PO DAILY 02/03/19 02/03/19 02/02/19 History [Losartan-Hctz 50-12.5 mg Tab] Sotalol [Betapace] 80 mg PO BID 02/03/19 02/03/19 02/03/19 History Tamsulosin [Flomax] 0.4 mg PO QPM 02/03/19 02/03/19 02/02/19 History Active Meds: Active Medications Acetaminophen (Tylenol) 650 mg PO Q4H PRN PRN Reason: Pain MILD(1-3)/Fever >100.5/MG Albuterol (Proventil) 2.5 mg IH Q4HRT PRN PRN Reason: Shortness Of Breath Apixaban (Eliquis) 5 mg PO BID [facility]; Protocol Last Admin: 02/04/19 11:06 Dose: 5 mg Documented by: Atorvastatin Calcium (Lipitor) 40 mg PO QPM [facility] Last Admin: 02/03/19 17:12 Dose: 40 mg Documented by: Cyanocobalamin (Vitamin B-12) 500 mcg PO QDAY [facility] Last Admin: 02/04/19 11:03 Dose: 500 mcg Documented by: Diltiazem HCl (Cardizem) 30 mg PO Q6HR [facility] Last Admin: 02/04/19 12:19 Dose: 30 mg Documented by: Hydrochlorothiazide (Hctz) 12.5 mg PO QDAY [facility] Last Admin: 02/04/19 11:04 Dose: 12.5 mg Documented by: Sodium Chloride (Nacl 0.45% 1000 Ml) 1,000 mls @ 42 mls/hr IV DIRECT [facility] Losartan Potassium (Cozaar) 50 mg PO QDAY [facility] Last Admin: 02/04/19 11:06 Dose: 50 mg Documented by: Ondansetron HCl (Zofran) 4 mg IV Q8H PRN PRN Reason: Nausea And Vomiting Oxycodone/Acetaminophen (Percocet 5/325) 1 tab PO Q6H PRN PRN Reason: Pain, Moderate (4-6) Sodium Chloride (Sodium Chloride Flush Syringe 10 Ml) 10 ml IV BID [facility] Last Admin: 02/04/19 11:07 Dose: 10 ml Documented by: Sodium Chloride (Sodium Chloride Flush Syringe 10 Ml) 10 ml IV PRN PRN PRN Reason: LINE FLUSH Sotalol HCl (Betapace) 80 mg PO Q12HR [facility] Last Admin: 02/04/19 11:06 Dose: 80 mg Documented by: Tamsulosin HCl (Flomax) 0.4 mg PO QPM [facility] Last Admin: 02/03/19 17:12 Dose: 0.4 mg Documented by: Review of Systems Constitutional: no weight loss, no weight gain, no fever, no chills, no anorexia, no weakness, no poor appetite Ears, nose, mouth and throat: no epistaxis Cardiovascular: shortness of breath, dyspnea on exertion, high blood pressure, decreased exercise tolerance, no chest pain, no orthopnea, no palpitations, no rapid/irregular heart beat, no edema, no syncope, no lightheadedness, no leg edema Respiratory: cough, shortness of breath, dyspnea on exertion, no excessive sputum, no hemoptysis, no sleep apnea, no home oxygen Gastrointestinal: no abdominal pain, no nausea, no vomiting, no diarrhea, no melena, no hematochezia Genitourinary Male: no dysuria, no hematuria Rectal: no bleeding Musculoskeletal: no redness of joints, no morning stiffness, no muscle weakness Integumentary: no rash, no redness, no wounds, no jaundice Neurological: no paralysis, no syncope, no vertigo, no convulsions, no aphasia, no change in speech, no change in mentation, no confusion, no memory loss Exam - Vital Signs Vital signs: Vital Signs Pulse Resp 118 H 22 02/03/19 12:15 02/03/19 12:15 - General Appearance General appearance: well-developed, well-nourished, appears stated age, other (no distress) EENT: ATNC, PERRL, mucous membranes moist, hearing intact, vision intact Neck: Present: neck supple, trachea midline Respiratory: Clear to Ascultation Heart: S1S2, no murmurs Gastrointestinal: Present: normoactive bowel sounds. Absent: tenderness, distended Integumentary: no rash, warm and dry Neurologic: no focal deficit, no asterixis, alert and oriented x3 Musculoskeletal: Present: other (no edema) Results - Lab Results 02/03/19 12:29 02/04/19 04:35 Most recent lab results Calcium 8.4 mg/dL (8.4-10.2) 02/04/19 04:35 Phosphorus 3.00 mg/dL (2.5-4.5) 02/04/19 04:35 Magnesium 1.70 mg/dL (1.7-2.3) 02/04/19 04:35 154.9 mg/dL (0.1-20.0) H 02/03/19 16:10 42 mmol/L 02/03/19 16:10 - Image Kidney/bladder ultrasound: pending Assessment and Plan 1. Acute kidney injury: Vasomotor RAFFI in the setting of A.fib with RVR Renal function is improving. Currently not on IV fluids. Encouraged PO fluids. Hold diuretics. Monitor renal function. Avoid nephrotoxic agents. Meds dosage based on GFR. 2. FEN: Mild Hyponatremia, improving. Monitor lytes. 3. A.fib with RVR: Followed by Cards. 4. Hypertension. 5. ?BPH.
[2019-02-04] MEDS: MIRALAX 3350 PO SCH (16:51)
[2019-02-04] MEDS: FLOMAX PO SCH (16:59)
[2019-02-04 18:03] LABS: Bilirubin,Urine NEG (Negative); Blood,Urine SM (Negative); Color,Urine Yellow (Yellow); Hyaline Casts,Urine 1 /LPF; Mucus,Urine FEW /HPF; Protein,Urine <15 mg/dL mg/dL (Negative); Urobilinogen,Urine < 2.0 mg/dL (<2.0); WBC,Urine < 1.0 /HPF (0.0-6.0)
[2019-02-05] MEDS: CARDIZEM PO SCH ×2 (01:03→05:25)
[2019-02-05 06:30] LABS: Calcium 9.1 mg/dL (8.4-10.2)
--- NOTE | 2019-02-05 08:03 | Ultrasound Report ---
ULTRASOUND RENAL INDICATION: Acute renal failure. COMPARISON: None similar. FINDINGS: Renal sonography suggests top normal/borderline increased renal cortical echogenicity. Grossly preserved contours. No hydronephrosis. Slight echogenic coarsening of imaged liver. RIGHT KIDNEY measures 9.7 x 4.3 x 4.8 cm with cortical thickness of 1.4 cm. A 3.3 x 3 cm lower pole cortical cyst, image 13. LEFT KIDNEY estimated at 9.9 x 4.3 x 4.3 cm with cortical thickness of 1.4 cm. A 2.3 x 2 cm slightly bulging/exophytic interpolar solid appearing cortical mass with intrinsic blood flow as on images 27-29. URINARY BLADDER suboptimally distended and assessed. CONCLUSION: Slight underlying medical renal disease, right renal cyst and a solid appearing left renal mass (neoplasm not excluded) sonographically, as described. Please also correlate clinically, with prior relevant imaging if available, or further with dedicated renal mass protocol CT or MRI, if renal function allows. Thank you for the opportunity to participate in this patient's care.
--- NOTE | 2019-02-05 09:25 | Progress Note ---
Assessment and Plan Atrial flutter, paroxysmal reverted to sinus rhythm. on eliquis and sotalol as an outpatient. Diltiazem has been added. Acute renal failure Dilated Cardiomyopathy EF 20-25% by echo this admission. Hypertension Hyperlipidemia Obtain prior cardiac records for review. Subjective Date of service: 02/05/19 Interval history: Patient has reverted to stable sinus rhythm on telemetry. He has no complaints. Objective Vital Signs Temp Pulse Pulse Resp BP BP Pulse Ox 02/05/19 08:25 97 02/05/19 05:25 64 108/62 02/05/19 03:10 98.9 F 56 L 18 108/62 97 02/05/19 01:03 68 104/62 02/05/19 01:00 104/62 02/04/19 23:07 98.0 F 68 18 83/46 98 02/04/19 22:21 98 H 100/64 02/04/19 22:15 78 18 97 02/04/19 20:00 98.1 F 68 131/68 02/04/19 19:59 73 02/04/19 19:34 98.0 F 78 18 100/64 97 02/04/19 16:59 102/69 02/04/19 16:10 98.6 F 129 H 18 102/69 96 02/04/19 12:32 126 H 125/83 96 02/04/19 12:19 123/78 02/04/19 11:06 105/65 02/04/19 10:00 72 94 H 18 100 - Physical Examination General: No Apparent Distress HEENT: Positive: PERRL Neck: Positive: trachea midline Cardiac: Positive: Reg Rate and Rhythm Lungs: Positive: Decreased Breath Sounds Neuro: Positive: Grossly Intact Extremities: Absent: edema - Labs and Meds Comprehensive Metabolic Panel 02/05/19 Range/Units 05:10 Sodium 136 L (137-145) mmol/L Potassium 4.3 (3.6-5.0) mmol/L Chloride 100.8 (98-107) mmol/L Carbon Dioxide 22 (22-30) mmol/L BUN 17 (9-20) mg/dL Creatinine 1.4 (0.8-1.5) mg/dL Glucose 99 (75-100) mg/dL Calcium 9.1 (8.4-10.2) mg/dL
[2019-02-05] MEDS: BETAPACE PO SCH ×2 (10:15→22:22)
[2019-02-05] MEDS: COZAAR PO SCH (10:20)
[2019-02-05] MEDS: MIRALAX 3350 PO SCH (10:21)
[2019-02-05] MEDS: ELIQUIS PO SCH ×2 (10:22→22:23)
[2019-02-05] MEDS: SODIUM CHLORIDE FLUSH SYRINGE 10 ML IV SCH ×2 (10:22→22:23)
[2019-02-05] MEDS: VITAMIN B-12 PO SCH (10:24)
--- NOTE | 2019-02-05 12:10 | Progress Note ---
Assessment and Plan 1. Acute kidney injury: Vasomotor RAFFI in the setting of A.fib with RVR Renal function is betetr since admission. Currently not on IV fluids. Encouraged PO fluids. Monitor renal function. Avoid nephrotoxic agents. Meds dosage based on GFR. 2. FEN: Mild Hyponatremia, improving. Monitor lytes. 3. A.fib with RVR: Followed by Cards. 4. Hypertension. 5. ?BPH. Subjective Date of service: 02/05/19 Interval history: Patient was seen and examined at the bedside. Doing ok. Objective - Vital Signs Vital signs: Vital Signs - 12hr 02/05/19 02/05/19 02/05/19 01:00 01:03 03:10 Temperature 98.9 F Pulse Rate 68 56 L Respiratory 18 Rate Blood Pressure 104/62 104/62 108/62 O2 Sat by Pulse 97 Oximetry 02/05/19 02/05/19 02/05/19 05:25 08:25 10:15 Temperature Pulse Rate 64 59 L Respiratory Rate Blood Pressure 108/62 112/63 O2 Sat by Pulse 97 Oximetry 02/05/19 10:20 Temperature Pulse Rate Respiratory Rate Blood Pressure 112/63 O2 Sat by Pulse Oximetry - General Appearance General appearance: well-developed, well-nourished, appears stated age, other (no distress) EENT: ATNC, PERRL, mucous membranes moist, vision intact Neck: supple Respiratory: Present: Clear to Ascultation Cardiology: S1S2, no murmurs Gastrointestinal: normoactive bowel sounds, no tenderness, no distended Integumentary: no rash, warm and dry Neurologic: no focal deficit, no asterixis, alert and oriented x3 Musculoskeletal: other (no edema) Psychiatric: cooperative - Lab 02/03/19 12:29 02/05/19 05:10 Most recent lab results Calcium 9.1 mg/dL (8.4-10.2) 02/05/19 05:10 Phosphorus 3.00 mg/dL (2.5-4.5) 02/04/19 04:35 Magnesium 1.70 mg/dL (1.7-2.3) 02/04/19 04:35 154.9 mg/dL (0.1-20.0) H 02/03/19 16:10 42 mmol/L 02/03/19 16:10 Medications & Allergies - Medications Allergies/Adverse Reactions: Allergies No Known Allergies Allergy (Verified 02/03/19 12:09) Home Medications: Home Medications Medication Instructions Recorded Confirmed Last Taken Type Apixaban [Eliquis] 5 mg PO BID 02/03/19 02/03/19 02/03/19 History Atorvastatin [Lipitor Tab] 40 mg PO QPM 02/03/19 02/03/19 02/02/19 History Cyanocobalamin (Vitamin B-12) 500 mcg PO QDAY 02/03/19 02/03/19 02/02/19 History [Vitamin B-12] Losartan/Hydrochlorothiazide 1 each PO DAILY 02/03/19 02/03/19 02/02/19 History [Losartan-Hctz 50-12.5 mg Tab] Sotalol [Betapace] 80 mg PO BID 02/03/19 02/03/19 02/03/19 History Tamsulosin [Flomax] 0.4 mg PO QPM 02/03/19 02/03/19 02/02/19 History Active Medications: Generic Name Dose Route Start Last Admin Trade Name Freq PRN Reason Stop Dose Admin Acetaminophen 650 mg 02/03/19 14:06 Tylenol PO Q4H PRN Pain MILD(1-3)/Fever >100.5/MG Albuterol 2.5 mg 02/03/19 14:06 Proventil IH Q4HRT PRN Shortness Of Breath Apixaban 5 mg 02/03/19 22:00 02/05/19 10:22 Eliquis PO 5 mg BID EDWAR Administration Protocol Atorvastatin Calcium 40 mg 02/03/19 18:00 02/04/19 16:59 Lipitor PO 40 mg QPM EDWAR Administration Cyanocobalamin 500 mcg 02/04/19 10:00 02/05/19 10:24 Vitamin B-12 PO Not Given QDAY EDWAR Sodium Chloride 1,000 mls @ 42 mls/hr 02/03/19 15:00 Nacl 0.45% 1000 Ml IV DIRECT EDWAR Losartan Potassium 50 mg 02/04/19 10:00 02/05/19 10:20 Cozaar PO 50 mg QDAY EDWAR Administration Ondansetron HCl 4 mg 02/03/19 14:06 Zofran IV Q8H PRN Nausea And Vomiting Oxycodone/Acetaminophen 1 tab 02/03/19 14:06 Percocet 5/325 PO Q6H PRN Pain, Moderate (4-6) Polyethylene Glycol 17 gm 02/04/19 17:00 02/05/19 10:21 Miralax 3350 PO 17 gm QDAY EDWAR Administration Sodium Chloride 10 ml 02/03/19 22:00 02/05/19 10:22 Sodium Chloride Flush Syringe 10 Ml IV 10 ml BID EDWAR Administration Sodium Chloride 10 ml 02/03/19 14:06 Sodium Chloride Flush Syringe 10 Ml IV PRN PRN LINE FLUSH Sotalol HCl 80 mg 02/03/19 15:14 02/05/19 10:15 Betapace PO 80 mg Q12HR EDWAR Administration Tamsulosin HCl 0.4 mg 02/03/19 18:00 02/04/19 16:59 Flomax PO 0.4 mg QPM EDWAR Administration
--- NOTE | 2019-02-05 15:33 | Cat Scan Report ---
PROCEDURE: CT ABDOMEN PELVIS WO CON TECHNIQUE: CT of the abdomen was performed. No IV or oral contrast administered. Axial images and cor onal and sagittal reformatted images were obtained. HISTORY: Kidney mass. COMPARISON: None FINDINGS: Image resolution limited by breathing motion. There is a 3.5 x 3.1 cm hypodense right renal mass which is likely a cyst. The sonographic lesion in the left kidney is not seen on noncontrast CT images. There are calcified g ranulomata in the liver. There are aortoiliac atherosclerotic calcifications. There is no abdominal aortic aneurysm. There is no evidence for intestinal obstruction. There is scattered mild diverticulosis involving visualized portions of the colon. There is no eviden ce for acute diverticulitis. IMPRESSION: Left renal lesions seen sonographically is not seen on CT. Evaluation of solid organs is limited by l ack of contrast administration. Recommend correlation with postcontrast CT or MRI. 3.5 cm right renal cysts. Scattered diverticulosis. No acute diverticulitis seen. This document is electronically signed by Cherelle Elaine MD., February 05 2019 03:31:14 PM ET
--- NOTE | 2019-02-05 17:00 | Progress Note ---
Assessment and Plan Assessment and plan: Atrial flutter. Continue eliquis and sotalol. Cardiology discontinued diltiazem. Follow-up echocardiogram. Hypertension. Continue antihypertensive medications. Hyperlipidemia. Continue statin. Disposition. Anticipate d/c in am History Interval history: This is a 73 year old male with a history of atrial fibrillation/flutter managed with sotalol and eliquis. 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 Patient presented to PCPs office and noted to have rapid atrial flutter. Patient was admitted with this diagnosis and started on IV diltiazem. TSH is normal and a chest x-ray reports no acute process. . Hospitalist Physical - Constitutional Vitals: Temp Pulse Resp BP Pulse Ox 98.9 F 59 L 18 112/63 97 02/05/19 03:10 02/05/19 10:15 02/05/19 03:10 02/05/19 10:20 02/05/19 08:25 General appearance: Present: no acute distress - EENT Eyes: Present: PERRL, EOM intact ENT: hearing intact, clear oral mucosa, dentition normal - Neck Neck: Present: supple, normal ROM - Respiratory Respiratory effort: normal Respiratory: bilateral: CTA - Cardiovascular Rhythm: regular Heart Sounds: Present: S1 & S2. Absent: gallop, rub - Extremities Extremities: no ischemia, No edema, Full ROM - Abdominal General gastrointestinal: soft, non-tender, non-distended, normal bowel sounds - Integumentary Integumentary: Present: clear, warm, dry - Neurologic Neurologic: CNII-XII intact, moves all extremities Results - Labs CBC & Chem 7: 02/03/19 12:29 02/05/19 05:10 Labs: Laboratory Last Values WBC 4.9 K/mm3 (4.5-11.0) 02/03/19 12:29 RBC 4.57 M/mm3 (3.65-5.03) 02/03/19 12:29 Hgb 13.0 gm/dl (11.8-15.2) 02/03/19 12:29 Hct 38.9 % (35.5-45.6) 02/03/19 12:29 MCV 85 fl (84-94) 02/03/19 12:29 MCH 29 pg (28-32) 02/03/19 12:29 MCHC 34 % (32-34) 02/03/19 12:29 RDW 16.6 % (13.2-15.2) H 02/03/19 12:29 Plt Count 382 K/mm3 (140-440) 02/03/19 12:29 Lymph % (Auto) 34.2 % (13.4-35.0) 02/03/19 12:29 [place] % (Auto) 14.1 % (0.0-7.3) H 02/03/19 12:29 Eos % (Auto) 0.7 % (0.0-4.3) 02/03/19 12:29 Baso % (Auto) 1.1 % (0.0-1.8) 02/03/19 12: Lymph # 1.7 K/mm3 (1.2-5.4) 02/03/19 12:29 [place] # 0.7 K/mm3 (0.0-0.8) 02/03/19 12:29 Eos # 0.0 K/mm3 (0.0-0.4) 02/03/19 12:29 Baso # 0.1 K/mm3 (0.0-0.1) 02/03/19 12:29 Seg Neutrophils % 49.9 % (40.0-70.0) 02/03/19 12:29 Seg Neutrophils # 2.5 K/mm3 (1.8-7.7) 02/03/19 12:29 Sodium 136 mmol/L (137-145) L 02/05/19 05:10 Potassium 4.3 mmol/L (3.6-5.0) 02/05/19 05:10 Chloride 100.8 mmol/L (98-107) 02/05/19 05:10 Carbon Dioxide 22 mmol/L (22-30) 02/05/19 05:10 18 mmol/L 02/05/19 05:10 BUN 17 mg/dL (9-20) 02/05/19 05:10 1.4 mg/dL (0.8-1.5) 02/05/19 05:10 Estimated GFR 60 ml/min 02/05/19 05:10 12 % 02/05/19 05:10 Glucose 99 mg/dL (75-100) 02/05/19 05:10 POC Glucose 103 (70-105) 02/05/19 07:59 Calcium 9.1 mg/dL (8.4-10.2) 02/05/19 05:10 Phosphorus 3.00 mg/dL (2.5-4.5) 02/04/19 04:35 Magnesium 1.70 mg/dL (1.7-2.3) 02/04/19 04:35 0.40 mg/dL (0.1-1.2) 02/04/19 04:35 AST 17 units/L (5-40) 02/04/19 04:35 ALT 12 units/L (7-56) 02/04/19 04:35 77 units/L (35-129) 02/04/19 04:35 < 0.010 ng/mL (0.00-0.029) 02/03/19 12:29 NT-Pro-B Natriuret Pep 2231 pg/mL (0-900) H 02/03/19 12:29 6.3 g/dL (6.3-8.2) 02/04/19 04:35 3.4 g/dL (3.9-5) L 02/04/19 04:35 1.2 % 02/04/19 04:35 TSH 1.350 mlU/mL (0.270-4.200) 02/03/19 15:04 Free T4 1.05 ng/dL (0.76-1.46) 02/03/19 15:04 Yellow (Yellow) 02/04/19 Unknown Clear (Clear) 02/04/19 Unknown 5.0 (5.0-7.0) 02/04/19 Unknown Ur Specific [place] 1.015 (1.003-1.030) 02/04/19 Unknown <15 mg/dl mg/dL (Negative) 02/04/19 Unknown Neg mg/dL (Negative) 02/04/19 Unknown Neg mg/dL (Negative) 02/04/19 Unknown Sm (Negative) 02/04/19 Unknown Neg (Negative) 02/04/19 Unknown Neg (Negative) 02/04/19 Unknown < 2.0 mg/dL (<2.0) 02/04/19 Unknown Ur Leukocyte Esterase Neg (Negative) 02/04/19 Unknown < 1.0 /HPF (0.0-6.0) 02/04/19 Unknown 4.0 /HPF (0.0-6.0) 02/04/19 Unknown U Epithel Cells (Auto) < 1.0 /HPF (0-13.0) 02/04/19 Unknown Hyaline Casts 1 /LPF 02/04/19 Unknown Few /HPF 02/04/19 Unknown 154.9 mg/dL (0.1-20.0) H 02/03/19 16:10 42 mmol/L 02/03/19 16:10 Active Medications - Current Medications Current Medications: Generic Name Dose Route Start Last Admin Trade Name Freq PRN Reason Stop Dose Admin Acetaminophen 650 mg 02/03/19 14:06 Tylenol PO Q4H PRN Pain MILD(1-3)/Fever >100.5/MG Albuterol 2.5 mg 02/03/19 14:06 Proventil IH Q4HRT PRN Shortness Of Breath Apixaban 5 mg 02/03/19 22:00 02/05/19 10:22 Eliquis PO 5 mg BID EDWAR Administration Protocol Atorvastatin Calcium 40 mg 02/03/19 18:00 02/04/19 16:59 Lipitor PO 40 mg QPM EDWAR Administration Cyanocobalamin 500 mcg 02/04/19 10:00 02/05/19 10:24 Vitamin B-12 PO Not Given QDAY EDWAR Sodium Chloride 1,000 mls @ 42 mls/hr 02/03/19 15:00 Nacl 0.45% 1000 Ml IV DIRECT EDWAR Losartan Potassium 50 mg 02/04/19 10:00 02/05/19 10:20 Cozaar PO 50 mg QDAY EDWAR Administration Ondansetron HCl 4 mg 02/03/19 14:06 Zofran IV Q8H PRN Nausea And Vomiting Oxycodone/Acetaminophen 1 tab 02/03/19 14:06 Percocet 5/325 PO Q6H PRN Pain, Moderate (4-6) Polyethylene Glycol 17 gm 02/04/19 17:00 02/05/19 10:21 Miralax 3350 PO 17 gm QDAY EDWAR Administration Sodium Chloride 10 ml 02/03/19 22:00 02/05/19 10:22 Sodium Chloride Flush Syringe 10 Ml IV 10 ml BID EDWAR Administration Sodium Chloride 10 ml 02/03/19 14:06 Sodium Chloride Flush Syringe 10 Ml IV PRN PRN LINE FLUSH Sotalol HCl 80 mg 02/03/19 15:14 02/05/19 10:15 Betapace PO 80 mg Q12HR EDWAR Administration Tamsulosin HCl 0.4 mg 02/03/19 18:00 02/04/19 16:59 Flomax PO 0.4 mg QPM EDWAR Administration
[2019-02-05] MEDS: FLOMAX PO SCH (17:57)
--- NOTE | 2019-02-06 09:05 | Progress Note ---
Assessment and Plan Atrial flutter, paroxysmal Atrial fibrillation, paroxysmal (HR 98 on tele) Failed sotalol therapy Acute renal failure - resolving Dilated Cardiomyopathy EF 20-25% by echo this admission (this is chronic and well known from previous work-up per patient) Records from [place] are still pending Hypertension Hyperlipidemia Recommendations: Discontinue sotalol as patient has failed therapy with it Replace sotalol with toprol XL 100 mg po bid Continue eliquis Patient will follow-up as outpatient with me May go home cardiac churchill later today if heart rate controlled on toprol XL Subjective Date of service: 02/06/19 Principal diagnosis: Atrial flutter Interval history: Patient has developed atrial fibrillation overnight - HR right now is 98 Patient has no other symptoms Objective Vital Signs Temp Pulse Pulse Resp BP Pulse Ox 02/06/19 04:23 98.6 F 52 L 18 123/64 99 02/05/19 23:25 99.1 F 95 H 18 119/71 87 02/05/19 22:22 102 H 121/71 02/05/19 22:20 102 H 18 95 02/05/19 21:42 99 02/05/19 20:04 106 H 02/05/19 19:57 98.7 F 102 H 18 121/71 95 02/05/19 17:00 73 123/68 100 02/05/19 10:20 112/63 02/05/19 10:15 59 L 112/63 02/05/19 10:00 64 78 18 97 - Physical Examination General: No Apparent Distress HEENT: Positive: PERRL Neck: Positive: trachea midline Cardiac: Positive: irregularly irregular Lungs: Positive: Normal Exam Neuro: Positive: Grossly Intact Extremities: Absent: edema
[2019-02-06] MEDS: ELIQUIS PO SCH ×2 (09:53→21:38)
[2019-02-06] MEDS: MIRALAX 3350 PO SCH (09:54)
[2019-02-06] MEDS: VITAMIN B-12 PO SCH (09:54)
[2019-02-06] MEDS: COZAAR PO SCH (09:54)
[2019-02-06] MEDS: SODIUM CHLORIDE FLUSH SYRINGE 10 ML IV SCH ×2 (09:55→21:38)
[2019-02-06] MEDS: TOPROL XL PO SCH ×2 (10:11→21:37)
--- NOTE | 2019-02-06 13:42 | Progress Note ---
Assessment and Plan 1. Acute kidney injury: Vasomotor RAFFI in the setting of A.fib with RVR Renal function is better and stable. Encouraged PO fluids. Monitor renal function. Avoid nephrotoxic agents. Meds dosage based on GFR. 2. FEN: Mild Hyponatremia, improving. Monitor lytes. 3. A.fib with RVR: Followed by Cards. 4. Hypertension. 5. ?BPH. CT was negative for any kidney lesion. F/u with me in 1-2 weeks. Subjective Date of service: 02/06/19 Principal diagnosis: Atrial flutter Interval history: Patient was seen and examined at the bedside. Doing ok. Objective - Vital Signs Vital signs: Vital Signs - 12hr 02/06/19 02/06/19 02/06/19 04:23 08:33 09:52 Temperature 98.6 F 98.1 F Pulse Rate 52 L 63 Pulse Rate [ Apical] Pulse Rate [ Left Radial] Pulse Rate [ Right Radial] Respiratory 18 18 Rate Blood Pressure 123/64 117/77 112/84 O2 Sat by Pulse 99 100 Oximetry 02/06/19 02/06/19 02/06/19 09:54 10:00 10:11 Temperature Pulse Rate 101 H 124 H 101 H Pulse Rate [ 101 H Apical] Pulse Rate [ 101 H Left Radial] Pulse Rate [ 101 H Right Radial] Respiratory 18 Rate Blood Pressure 112/84 112/84 O2 Sat by Pulse 98 Oximetry 02/06/19 11:39 Temperature Pulse Rate 118 H Pulse Rate [ Apical] Pulse Rate [ Left Radial] Pulse Rate [ Right Radial] Respiratory Rate Blood Pressure 108/82 O2 Sat by Pulse 100 Oximetry - General Appearance General appearance: well-developed, well-nourished, appears stated age, other (no distress) EENT: ATNC, PERRL, hearing intact, vision intact Neck: supple Respiratory: Present: Clear to Ascultation Cardiology: S1S2, no murmurs Gastrointestinal: normoactive bowel sounds, no tenderness, no distended Integumentary: no rash, warm and dry Neurologic: no focal deficit, no asterixis, alert and oriented x3 Musculoskeletal: other (no edema) Psychiatric: cooperative - Lab 02/03/19 12:29 02/06/19 15:04 Most recent lab results Calcium 9.1 mg/dL (8.4-10.2) 02/05/19 05:10 Phosphorus 3.00 mg/dL (2.5-4.5) 02/04/19 04:35 Magnesium 1.70 mg/dL (1.7-2.3) 02/04/19 04:35 154.9 mg/dL (0.1-20.0) H 02/03/19 16:10 42 mmol/L 02/03/19 16:10 Medications & Allergies - Medications Allergies/Adverse Reactions: Allergies No Known Allergies Allergy (Verified 02/03/19 12:09) Home Medications: Home Medications Medication Instructions Recorded Confirmed Last Taken Type Apixaban [Eliquis] 5 mg PO BID #60 tablet 02/07/19 Unknown Rx AtorvaSTATin [Lipitor] 40 mg PO QPM #30 tablet 02/07/19 Unknown Rx Cyanocobalamin (Vitamin B-12) 500 mcg PO QDAY #30 tablet 02/07/19 Unknown Rx [Vitamin B-12] Cyanocobalamin [Vitamin B-12] 500 mcg PO QDAY tablet 02/07/19 Unknown Rx Losartan [Cozaar] 50 mg PO QDAY #30 tablet 02/07/19 Unknown Rx Losartan/Hydrochlorothiazide 1 each PO DAILY #30 tablet 02/07/19 Unknown Rx [Losartan-Hctz 50-12.5 mg Tab] Metoprolol Xl [Metoprolol 100 mg PO Q12H #60 tablet 02/07/19 Unknown Rx SUCCINATE ER TAB] Tamsulosin [Flomax] 0.4 mg PO QPM #30 capsule 02/07/19 Unknown Rx Active Medications: Generic Name Dose Route Start Last Admin Trade Name Freq PRN Reason Stop Dose Admin Acetaminophen 650 mg 02/03/19 14:06 Tylenol PO Q4H PRN Pain MILD(1-3)/Fever >100.5/MG Albuterol 2.5 mg 02/03/19 14:06 Proventil IH Q4HRT PRN Shortness Of Breath Apixaban 5 mg 02/03/19 22:00 02/06/19 09:53 Eliquis PO 5 mg BID EDWAR Administration Protocol Atorvastatin Calcium 40 mg 02/03/19 18:00 02/05/19 17:57 Lipitor PO 40 mg QPM EDWAR Administration Cyanocobalamin 500 mcg 02/04/19 10:00 02/06/19 09:54 Vitamin B-12 PO 500 mcg QDAY EDWAR Administration Sodium Chloride 1,000 mls @ 42 mls/hr 02/03/19 15:00 Nacl 0.45% 1000 Ml IV DIRECT EDWAR Losartan Potassium 50 mg 02/04/19 10:00 02/06/19 09:54 Cozaar PO 50 mg QDAY EDWAR Administration Metoprolol Succinate 100 mg 02/06/19 09:00 02/06/19 10:11 Toprol Xl PO 100 mg Q12H EDWAR Administration Ondansetron HCl 4 mg 02/03/19 14:06 Zofran IV Q8H PRN Nausea And Vomiting Oxycodone/Acetaminophen 1 tab 02/03/19 14:06 Percocet 5/325 PO Q6H PRN Pain, Moderate (4-6) Polyethylene Glycol 17 gm 02/04/19 17:00 02/06/19 09:54 Miralax 3350 PO 17 gm QDAY EDWAR Administration Sodium Chloride 10 ml 02/03/19 22:00 02/06/19 09:55 Sodium Chloride Flush Syringe 10 Ml IV 10 ml BID EDWAR Administration Sodium Chloride 10 ml 02/03/19 14:06 Sodium Chloride Flush Syringe 10 Ml IV PRN PRN LINE FLUSH Tamsulosin HCl 0.4 mg 02/03/19 18:00 02/05/19 17:57 Flomax PO 0.4 mg QPM EDWAR Administration
--- NOTE | 2019-02-06 14:25 | Progress Note ---
Assessment and Plan Assessment and plan: Atrial flutter. Failed sotalol so replaced with Toprol XL per Cardiology. Cont. Eliquis Dilated CM. ECHO revealed EF 20-25% Hypertension. Continue antihypertensive medications. Hyperlipidemia. Continue statin. Disposition. Anticipate d/c in am History Interval history: This is a 73 year old male with a history of atrial fibrillation/flutter managed with sotalol and eliquis. 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 Patient presented to PCPs office and noted to have rapid atrial flutter. Patient was admitted with this diagnosis and started on IV diltiazem. TSH is normal and a chest x-ray reports no acute process. . Hospitalist Physical - Constitutional Vitals: Temp Pulse Resp BP Pulse Ox 98.1 F 118 H 18 108/82 100 02/06/19 08:33 02/06/19 11:39 02/06/19 10:00 02/06/19 11:39 02/06/19 11:39 General appearance: Present: no acute distress - EENT Eyes: Present: PERRL, EOM intact ENT: hearing intact, clear oral mucosa, dentition normal - Neck Neck: Present: supple, normal ROM - Respiratory Respiratory effort: normal Respiratory: bilateral: CTA - Cardiovascular Rhythm: regular Heart Sounds: Present: S1 & S2. Absent: gallop, rub - Extremities Extremities: no ischemia, No edema, Full ROM - Abdominal General gastrointestinal: soft, non-tender, non-distended, normal bowel sounds - Integumentary Integumentary: Present: clear, warm, dry - Neurologic Neurologic: CNII-XII intact, moves all extremities Results - Labs CBC & Chem 7: 02/03/19 12:29 02/05/19 05:10 Labs: Laboratory Last Values WBC 4.9 K/mm3 (4.5-11.0) 02/03/19 12:29 RBC 4.57 M/mm3 (3.65-5.03) 02/03/19 12:29 Hgb 13.0 gm/dl (11.8-15.2) 02/03/19 12:29 Hct 38.9 % (35.5-45.6) 02/03/19 12:29 MCV 85 fl (84-94) 02/03/19 12:29 MCH 29 pg (28-32) 02/03/19 12:29 MCHC 34 % (32-34) 02/03/19 12:29 RDW 16.6 % (13.2-15.2) H 02/03/19 12:29 Plt Count 382 K/mm3 (140-440) 02/03/19 12:29 Lymph % (Auto) 34.2 % (13.4-35.0) 02/03/19 12:29 [place] % (Auto) 14.1 % (0.0-7.3) H 02/03/19 12:29 Eos % (Auto) 0.7 % (0.0-4.3) 02/03/19 12:29 Baso % (Auto) 1.1 % (0.0-1.8) 02/03/19 12: Lymph # 1.7 K/mm3 (1.2-5.4) 02/03/19 12:29 [place] # 0.7 K/mm3 (0.0-0.8) 02/03/19 12:29 Eos # 0.0 K/mm3 (0.0-0.4) 02/03/19 12:29 Baso # 0.1 K/mm3 (0.0-0.1) 02/03/19 12:29 Seg Neutrophils % 49.9 % (40.0-70.0) 02/03/19 12:29 Seg Neutrophils # 2.5 K/mm3 (1.8-7.7) 02/03/19 12:29 Sodium 136 mmol/L (137-145) L 02/05/19 05:10 Potassium 4.3 mmol/L (3.6-5.0) 02/05/19 05:10 Chloride 100.8 mmol/L (98-107) 02/05/19 05:10 Carbon Dioxide 22 mmol/L (22-30) 02/05/19 05:10 18 mmol/L 02/05/19 05:10 BUN 17 mg/dL (9-20) 02/05/19 05:10 1.4 mg/dL (0.8-1.5) 02/05/19 05:10 Estimated GFR 60 ml/min 02/05/19 05:10 12 % 02/05/19 05:10 Glucose 99 mg/dL (75-100) 02/05/19 05:10 POC Glucose 103 (70-105) 02/05/19 07:59 Calcium 9.1 mg/dL (8.4-10.2) 02/05/19 05:10 Phosphorus 3.00 mg/dL (2.5-4.5) 02/04/19 04:35 Magnesium 1.70 mg/dL (1.7-2.3) 02/04/19 04:35 0.40 mg/dL (0.1-1.2) 02/04/19 04:35 AST 17 units/L (5-40) 02/04/19 04:35 ALT 12 units/L (7-56) 02/04/19 04:35 77 units/L (35-129) 02/04/19 04:35 < 0.010 ng/mL (0.00-0.029) 02/03/19 12:29 NT-Pro-B Natriuret Pep 2231 pg/mL (0-900) H 02/03/19 12:29 6.3 g/dL (6.3-8.2) 02/04/19 04:35 3.4 g/dL (3.9-5) L 02/04/19 04:35 1.2 % 02/04/19 04:35 TSH 1.350 mlU/mL (0.270-4.200) 02/03/19 15:04 Free T4 1.05 ng/dL (0.76-1.46) 02/03/19 15:04 Yellow (Yellow) 02/04/19 Unknown Clear (Clear) 02/04/19 Unknown 5.0 (5.0-7.0) 02/04/19 Unknown Ur Specific [place] 1.015 (1.003-1.030) 02/04/19 Unknown <15 mg/dl mg/dL (Negative) 02/04/19 Unknown Neg mg/dL (Negative) 02/04/19 Unknown Neg mg/dL (Negative) 02/04/19 Unknown Sm (Negative) 02/04/19 Unknown Neg (Negative) 02/04/19 Unknown Neg (Negative) 02/04/19 Unknown < 2.0 mg/dL (<2.0) 02/04/19 Unknown Ur Leukocyte Esterase Neg (Negative) 02/04/19 Unknown < 1.0 /HPF (0.0-6.0) 02/04/19 Unknown 4.0 /HPF (0.0-6.0) 02/04/19 Unknown U Epithel Cells (Auto) < 1.0 /HPF (0-13.0) 02/04/19 Unknown Hyaline Casts 1 /LPF 02/04/19 Unknown Few /HPF 02/04/19 Unknown 154.9 mg/dL (0.1-20.0) H 02/03/19 16:10 42 mmol/L 02/03/19 16:10 Active Medications - Current Medications Current Medications: Generic Name Dose Route Start Last Admin Trade Name Freq PRN Reason Stop Dose Admin Acetaminophen 650 mg 02/03/19 14:06 Tylenol PO Q4H PRN Pain MILD(1-3)/Fever >100.5/MG Albuterol 2.5 mg 02/03/19 14:06 Proventil IH Q4HRT PRN Shortness Of Breath Apixaban 5 mg 02/03/19 22:00 02/06/19 09:53 Eliquis PO 5 mg BID EDWAR Administration Protocol Atorvastatin Calcium 40 mg 02/03/19 18:00 02/05/19 17:57 Lipitor PO 40 mg QPM EDWAR Administration Cyanocobalamin 500 mcg 02/04/19 10:00 02/06/19 09:54 Vitamin B-12 PO 500 mcg QDAY EDWAR Administration Sodium Chloride 1,000 mls @ 42 mls/hr 02/03/19 15:00 Nacl 0.45% 1000 Ml IV DIRECT EDWAR Losartan Potassium 50 mg 02/04/19 10:00 02/06/19 09:54 Cozaar PO 50 mg QDAY EDWAR Administration Metoprolol Succinate 100 mg 02/06/19 09:00 02/06/19 10:11 Toprol Xl PO 100 mg Q12H EDWAR Administration Ondansetron HCl 4 mg 02/03/19 14:06 Zofran IV Q8H PRN Nausea And Vomiting Oxycodone/Acetaminophen 1 tab 02/03/19 14:06 Percocet 5/325 PO Q6H PRN Pain, Moderate (4-6) Polyethylene Glycol 17 gm 02/04/19 17:00 02/06/19 09:54 Miralax 3350 PO 17 gm QDAY EDWAR Administration Sodium Chloride 10 ml 02/03/19 22:00 02/06/19 09:55 Sodium Chloride Flush Syringe 10 Ml IV 10 ml BID EDWAR Administration Sodium Chloride 10 ml 02/03/19 14:06 Sodium Chloride Flush Syringe 10 Ml IV PRN PRN LINE FLUSH Tamsulosin HCl 0.4 mg 02/03/19 18:00 02/05/19 17:57 Flomax PO 0.4 mg QPM EDWAR Administration
[2019-02-06 15:39] LABS: BUN/Creatinine Ratio 11; Blood Urea Nitrogen 14 mg/dL (9-20); Calcium 8.8 mg/dL (8.4-10.2); Hemolysis Index 8
[2019-02-06] MEDS: FLOMAX PO SCH (17:40)
--- NOTE | 2019-02-07 09:04 | Discharge Summary ---
Providers - Providers Date of Admission: 02/03/19 14:06 Date of discharge: 02/07/19 Attending physician: KATRINA DAVIES 02/03/19 14:11 Consult to Cardiology [CONS] Routine Consulting Provider: GAURAV KUMAR Reason For Exam: Atrial Fib 02/03/19 14:12 Consult to Physician [CONS] Routine Comment: Consulting Provider: SONIA SKELTON Physician Instructions: Reason For Exam: ARF Primary care physician: GREGORY STOLL Hospitalization Reason for admission: atrial flutter Condition: Critical Hospital course: This patient is a 73 YO male with history significant for HTN, HLD and Atrial fibrillation/flutter who presented from his pcp's office with rapid atrial flutter. Patient presented to his pcp with c/o shortness of breath, cough and congestion for about 4 weeks. The symptoms were worse for the past 2 weeks and not relieved by [id number] meds. In the emergency department he was treated with intravenous diltiazem. His creatinine was found to be at 1.6 on admission. The patient was seen by cardiology and nephrology in consultation. The diltiazem was later discontinued and patient was maintained on sotalol. However, cardiology later fell sotalol needed to be discontinued due to failed therapy. Therefore, patient was started on Toprol-XL 100 mg by mouth daily. Patient was maintained on eliquis. Echocardiogram completed on this admission revealed EF of 20-25% which is not new. With regards to the renal failure, etiology was felt to be secondary to Vasomotor RAFFI in the setting of a flutter with RVR. The patient responded to IV fluids and creatinine returned back to baseline. Patient is felt to have received maximal hospital benefit and will be discharged home. The dictated discharge summary 35 minutes. Disposition: [id number] TO HOME OR SELFCARE Time spent for discharge: 35 - Discharge Diagnoses (1) ARF (acute renal failure) with tubular necrosis Status: Acute (2) Atrial flutter with rapid ventricular response Status: Acute (3) HLD (hyperlipidemia) Status: Acute Qualifiers: Hyperlipidemia type: mixed hyperlipidemia Qualified Code(s): E78.2 - Mixed hyperlipidemia (4) HTN (hypertension) Status: Acute Qualifiers: Hypertension type: essential hypertension Qualified Code(s): I10 - Essential (primary) hypertension (5) Hyponatremia syndrome Status: Acute Core Measure Documentation - Palliative Care Palliative Care/ Comfort Measures: Not Applicable - Core Measures Any of the following diagnoses?: none Exam - Constitutional Vitals: Temp Pulse Resp BP Pulse Ox 97.6 F 65 18 116/59 100 02/07/19 07:46 02/07/19 07:46 02/07/19 07:46 02/07/19 07:46 02/07/19 07:46 General appearance: Present: no acute distress, well-nourished - EENT Eyes: Present: PERRL ENT: hearing intact, clear oral mucosa - Neck Neck: Present: supple, normal ROM - Respiratory Respiratory effort: normal Respiratory: bilateral: CTA - Cardiovascular Heart Sounds: Present: S1 & S2. Absent: rub, click - Extremities Extremities: pulses symmetrical, No edema Peripheral Pulses: within normal limits - Abdominal General gastrointestinal: Present: soft, non-tender, non-distended, normal bowel sounds Male genitourinary: Present: normal - Integumentary Integumentary: Present: clear, warm, dry - Musculoskeletal Musculoskeletal: gait normal, strength equal bilaterally - Psychiatric Psychiatric: appropriate mood/affect, intact judgment & insight - Neurologic Neurologic: CNII-XII intact, moves all extremities Plan Activity: advance as tolerated Weight Bearing Status: Weight Bear as Tolerated Follow up with: GREGORY STOLL [Primary Care Provider] - 7 Days SONIA SKELTON MD [Staff Physician] - 7 Days CHANG ALMEIDA MD [Staff Physician] - 7 Days Prescriptions: Losartan [Cozaar] 50 mg PO QDAY #30 tablet Apixaban [Eliquis] 5 mg PO BID #60 tablet Tamsulosin [Flomax] 0.4 mg PO QPM #30 capsule AtorvaSTATin [Lipitor] 40 mg PO QPM #30 tablet Losartan/Hydrochlorothiazide [Losartan-Hctz 50-12.5 mg Tab] 1 each PO DAILY #30 tablet Metoprolol Xl [Metoprolol SUCCINATE ER TAB] 100 mg PO Q12H #60 tablet Cyanocobalamin (Vitamin B-12) [Vitamin B-12] 500 mcg PO QDAY #30 tablet
[2019-02-07] MEDS: ELIQUIS PO SCH (09:25)
[2019-02-07] MEDS: VITAMIN B-12 PO SCH (09:26)
[2019-02-07] MEDS: COZAAR PO SCH (09:26)
[2019-02-07] MEDS: TOPROL XL PO SCH (09:26)
[2019-02-07] MEDS: SODIUM CHLORIDE FLUSH SYRINGE 10 ML IV SCH (09:27)
[2019-02-07] MEDS: MIRALAX 3350 PO SCH (09:27)
--- NOTE | 2019-02-07 10:17 | Progress Note ---
Assessment and Plan Atrial flutter, paroxysmal Atrial fibrillation, paroxysmal (HR 98 on tele) Failed sotalol therapy Acute renal failure - resolving Dilated Cardiomyopathy EF 20-25% by echo this admission (this is chronic and well known from previous work-up per patient) Records from [place] are still pending Hypertension Hyperlipidemia Recommendations: Replace sotalol with toprol XL 100 mg po bid (as patient has failed therapy with sotalol) Continue eliquis Patient will follow-up as outpatient with me May go home cardiac churchill later Subjective Date of service: 02/07/19 Principal diagnosis: Atrial flutter Interval history: Patient is back in SR this morning No CV complaints Objective Vital Signs Temp Pulse Resp BP Pulse Ox 02/07/19 09:26 86 113/59 02/07/19 07:46 97.6 F 65 18 116/59 100 02/07/19 04:42 98.4 F 72 18 109/61 99 02/06/19 23:40 98.2 F 65 18 113/71 97 02/06/19 20:52 71 02/06/19 16:03 98.3 F 71 18 97/65 98 02/06/19 15:13 68 110/64 100 02/06/19 12:00 120 H 02/06/19 11:39 118 H 108/82 100 - Physical Examination General: No Apparent Distress HEENT: Positive: PERRL Neck: Positive: trachea midline Cardiac: Positive: Reg Rate and Rhythm Lungs: Positive: Normal Exam Neuro: Positive: Grossly Intact Extremities: Absent: edema - Labs and Meds Comprehensive Metabolic Panel 02/06/19 Range/Units 15:04 Sodium 137 (137-145) mmol/L Potassium 4.2 (3.6-5.0) mmol/L Chloride 100.5 (98-107) mmol/L Carbon Dioxide 26 (22-30) mmol/L BUN 14 (9-20) mg/dL Creatinine 1.3 (0.8-1.5) mg/dL Glucose 177 H (75-100) mg/dL Calcium 8.8 (8.4-10.2) mg/dL
[2019-02-07 11:48] VITALS: BP 113/70
== END 2019-02-07 13:35 | disposition home or self-care (01) | DRG 682 ==
LOC: ED 11:53 → 4A 14:06
PROVIDERS: ADMIT Internal Medicine; ATTEND Hospitalist
DX: N17.0 Acute kidney failure with tubular necrosis (principal); I50.21 Acute systolic (congestive) heart failure; I48.92 Unspecified atrial flutter; E87.1 Hypo-osmolality and hyponatremia; I42.0 Dilated cardiomyopathy; I48.91 Unspecified atrial fibrillation; E78.2 Mixed hyperlipidemia; I11.0 Hypertensive heart disease with heart failure; I95.9 Hypotension, unspecified; Z86.73 Personal history of transient ischemic attack (TIA), and cerebral infarction without residual deficits; Z82.49 Family history of ischemic heart disease and other diseases of the circulatory system; Z79.899 Other long term (current) drug therapy
CPT/HCPCS: 36415; 71045; 74176; 76770; 80048; 80053; 81001; 82570; 82962; 83735; 83880; 84100; 84300; 84439; 84443; 84484; 85025; 93005; 93010; 93306; 94760; 96374; 99291; G0378; A9270-GY; J7030